=== PATIENT | female | born 1995 | race Caucasian/White ===

== ENCOUNTER 2021-07-12 07:14 | Emergency (ER) | payer OTHER ==
[~2021-07-12] VITALS: Ht 157.5 cm; Wt 94.3 kg
--- NOTE | 2021-07-12 07:23 | PHYS DOC ---
General Adult EDM: Chief Complaint: ABDOMINAL PAIN HPI: HPI: Patient is a 25 year old female who presents with epigastric abdominal pain, which radiates to her right upper quadrant and to her back. Symptoms began around 2 AM today. Last night for dinner, she had fried pork and macaroni and cheese. She reports nausea, denies vomiting. She denies constipation or diarrhea. She denies urinary symptoms. LMP about 1 month ago. She denies lower abdominal pain. The pain is sharp, colicky and intermittent. The pain is actually better now than it was before she arrived. She had one episode of similar pain about a month ago, for which she did not seek any medical care. She denies any previous abdominal surgery. Review of Systems: Review of Systems: Constitutional: Denies fever or chills. [] HENT: Denies nasal congestion or sore throat. [] Respiratory: Denies cough or shortness of breath. [] Cardiovascular: Denies chest pain GI: Upper abdominal pain, nausea; denies vomiting, diarrhea or constipation : Denies urinary symptoms Musculoskeletal: Mid back pain, radiating from the mid upper abdomen Integument: Denies rash, jaundice or itching Neurologic: Denies headache, focal weakness or sensory changes. [] Psychiatric: Denies depression or anxiety. [] Heart Score: C/O Chest Pain: No Risk Factors: Risk Factors: DM, Current or recent (<one month) smoker, HTN, HLP, family history of CAD, obesity. Risk Scores: Score 0 - 3: 2.5% MACE over next 6 weeks - Discharge Home Score 4 - 6: 20.3% MACE over next 6 weeks - Admit for Clinical Observation Score 7 - 10: 72.7% MACE over next 6 weeks - Early Invasive Strategies Physical Exam: PE: Constitutional: Well developed, well nourished, no acute distress, non-toxic appearance. [] HENT: Normocephalic, atraumatic, oropharynx is patent and clear, mucous membranes are moist Eyes: Conjunctiva normal, no discharge, sclera are anicteric Neck: Normal range of motion, no tenderness, supple, no stridor. [] Cardiovascular:Heart rate regular rhythm, +2 radial and +2 posterior tibial pulses bilaterally Lungs & Thorax: Bilateral breath sounds clear to auscultation [] Abdomen: Abdomen is obese, soft, nondistended, mild epigastric and right upper quadrant tenderness to palpation. No guarding, no rebound tenderness, no lower abdominal tenderness. No palpable pulsatile mass. No palpable masses organomegaly. No CVA tenderness. No flank or abdominal ecchymoses are noted. Normal bowel sounds are noted. Negative Al's. Skin: Warm, dry, no erythema, no rash. No jaundice. Back: No tenderness, no CVA tenderness. [] Extremities: No tenderness, no cyanosis, no clubbing, ROM intact, no edema. No calf tenderness. Neurologic: Alert and oriented X 3, normal motor function, normal sensory function, no focal deficits noted. [] Psychologic: Affect normal, judgement normal, mood normal. [] EKG: EKG: [] Radiology/Procedures: Radiology/Procedures: IMAGING REPORT Signed PATIENT: JOVAN REEVES ACCOUNT: [id number] : 1995 LOCATION: ER AGE: 25 SEX: F EXAM STATUS: REG ER ORD. PHYSICIAN: FRANCES FITZPATRICK DO REASON: upper abdominal pain PROCEDURE: ABDOMEN LTD Exam Date: 07/12/2021 8:21 AM US ABDOMEN LIMITED Indication: Reason: upper abdominal pain / Spl. Instructions: / History: . TECHNIQUE: Multiple longitudinal and transverse sonographic images of the right upper quadrant and gallbladder are submitted for interpretation. FINDINGS: The liver is normal in size and echogenicity. The portal vein is patent with hepatopetal flow. No focal intrahepatic abnormality is seen. There is a 2.3 cm gallstone in the gallbladder neck. There is no gallbladder wall thickening or pericholecystic fluid. There is no biliary ductal dilatation, with the common bile duct measuring 4 mm. The visualized abdominal aorta, inferior vena cava and pancreas are within normal limits. There is no upper abdominal ascites. The right kidney is normal in appearance, measuring 10.7 cm. IMPRESSION: Gallstone. Otherwise normal right upper quadrant abdominal ultrasound exam. Electronically signed by: Mihai Mcnamara MD (07/12/2021 8:51 AM) [id number] DICTATED and SIGNED BY: MIHAI MCNAMARA MD DATE: 07/12/21 [id number] 0 Course & Med Decision Making: Course & Med Decision Making Pertinent Labs and Imaging studies reviewed. (See chart for details) The patient is given IV Toradol, IV Zofran and IV fluids. She is requesting food and drink now. She has a benign, nonsurgical abdominal exam. She has an isolated gallstone, no evidence of cholecystitis. Laboratory evaluation is unremarkable. I have discussed all of the findings, differential diagnosis and plan of care with her. I discussed home care instructions, recommended that she avoid spicy, greasy or fatty foods. She is given information for outpatient general surgery consultation. No indication for further invasive exams, imaging or admission at this time based on current clinical presentation. Return precautions are given. She verbalized understanding. Osman Disclaimer: Osman Disclaimer: This electronic medical record was generated, in whole or in part, using a voice recognition dictation system. Departure Departure Impression: Primary Impression: Symptomatic cholelithiasis Disposition: HOME / SELF CARE / HOMELESS Condition: STABLE Patient Instructions: Biliary Colic, Cholelithiasis Additional Instructions: Use the pain medicine and nausea medicine as needed/as directed. Please eat a bland, low-fat, nongreasy diet. These types of foods will make your gallstone pain worse. Return to the ER for jaundice, which is yellowing of the eyes or skin, if you develop temperature 100.4 or higher, if you develop uncontrolled vomiting, dehydration, more severe uncontrolled pain or any other concerns. Please contact your primary care doctor for follow-up, also please follow-up with outpatient general surgery to discuss possible gallbladder removal, should your symptoms persist. Scripts Ondansetron Hcl (ONDANSETRON HCL) 4 Mg Tablet 1 TAB PO PRN Q6HRS for vomiting, #20 TAB 1 Refill Prov: FRANCES FITZPATRICK DO 07/12/21 Hydrocodone Bit/Acetaminophen (HYDROCODONE-APAP 5-325 ) 1 Tab Tablet 1 TAB PO PRN Q6HRS PRN for PAIN, #20 TAB 0 Refills Prov: FRANCES FITZPATRICK DO 07/12/21 FRANCES FITZPATRICK DO Jul 12, 2021 07:23
[2021-07-12] MEDS ORDERED: IV NORMAL SALINE 1000ML BAG 1,000 ML IV ONE (08:00)
[2021-07-12] MEDS ORDERED: ONDANSETRON PF 4 MG/2 ML VIAL. IVP ONE (08:00)
[2021-07-12] MEDS ORDERED: KETOROLAC 15 MG/ML VIAL. IVP ONE (08:00)
[2021-07-12 08:02] LABS: BILIRUBIN,URINE NEGATIVE (NEG); CLARITY,URINE CLEAR; COLOR,URINE YELLOW; NITRITE,URINE NEGATIVE (NEG); PROTEIN,URINE NEGATIVE (NEG-TRACE); UROBILINOGEN,URINE 0.2 mg/dL (0.2 mg/dL)
[2021-07-12 08:06] LABS: U PREG PATIENT NEGATIVE (NEG)
[2021-07-12 08:21] LABS: BACTERIA,URINE MANY /HPF (0-FEW); RBC,URINE OCC /HPF (0-2)
[2021-07-12 08:31] LABS: BASO # 0.1 x10^3/uL (0.0-0.2); BASO % 1 % (0-3); EOS # 0.2 x10^3/uL (0.0-0.7); EOS % 2 % (0-3); HEMATOCRIT 35.4 % (36.0-47.0); HEMOGLOBIN 12.3 g/dL (12.0-15.5); LYMPH # 2.9 x10^3/uL (1.0-4.8); LYMPH % 31 % (24-48); MEAN CORPUSCULAR HEMOGLOBIN 29 pg (25-35); MEAN CORPUSCULAR HGB CONC 35 g/dL (31-37); MEAN CORPUSCULAR VOLUME 84 fL (79-100); MONO # 0.5 x10^3/uL (0.0-1.1); MONO % 5 % (0-9); NEUT # 5.7 x10^3/uL (1.8-7.7); NEUT % 61 % (31-73); PLATELET COUNT 294 x10^3/uL (140-400); RED BLOOD COUNT 4.21 x10^6/uL (3.50-5.40); RED CELL DISTRIBUTION WIDTH 14.9 % (11.5-14.5); WHITE BLOOD COUNT 9.4 x10^3/uL (4.0-11.0)
[2021-07-12 08:49] LABS: ALBUMIN 3.2 g/dL (3.4-5.0); ALBUMIN/GLOBULIN RATIO 0.8 (1.0-1.7); CALCIUM 8.2 mg/dL (8.5-10.1); CREATININE 0.7 mg/dL (0.6-1.0); GFR 101.1; POTASSIUM 4.1 mmol/L (3.5-5.1); TOTAL BILIRUBIN 0.1 mg/dL (0.2-1.0); TOTAL PROTEIN 7.4 g/dL (6.4-8.2)
--- NOTE | 2021-07-12 08:54 | RAD ---
Exam Date: 07/12/2021 8:21 AM US ABDOMEN LIMITED Indication: Reason: upper abdominal pain / Spl. Instructions: / History: . TECHNIQUE: Multiple longitudinal and transverse sonographic images of the right upper quadrant and g allbladder are submitted for interpretation. FINDINGS: The liver is normal in size and echogenicity. The portal vein is patent with hepatopetal flow. No f ocal intrahepatic abnormality is seen. There is a 2.3 cm gallstone in the gallbladder neck. There is no gallbladder wall thickening or nathan cholecystic fluid. There is no biliary ductal dilatation, with the common bile duct measuring 4 mm. The visualized abdominal aorta, inferior vena cava and pancreas are within normal limits. There is n o upper abdominal ascites. The right kidney is normal in appearance, measuring 10.7 cm. IMPRESSION: Gallstone. Otherwise normal right upper quadrant abdominal ultrasound exam. Electronically signed by: Alfred Mcnamara MD (07/12/2021 8:51 AM) [id number]
[2021-07-12 09:34] VITALS: BP 103/54
[2021-07-12] MEDS ORDERED: HYDR-2761 PO (09:35)
[2021-07-12] MEDS ORDERED: ONDA-84 PO (09:35)
== END 2021-07-12 09:45 | disposition home or self-care (01) ==
LOC: ER 07:14
DX: K80.20 Calculus of gallbladder without cholecystitis without obstruction (principal)
CPT/HCPCS: 36415; 76705; 80053; 81001; 81025; 83690; 85025; 87086; 96361; 96374; 96375; 99285; J1885; J2405; J7030